=== PATIENT | male | born 1945 | race Caucasian/White ===

== ENCOUNTER 2016-05-29 08:38 | Day surgery (SDC) | payer MEDICARE, OTHER ==
[~2016-05-29 08:38] MED LIST: CELEBREX200 MG PO; LEVAQUIN750 M1 PO; MUCINEX600 M1 PO; NAPROXEN500 MG PO; NICOTINE PATCH1 EAC2 TP; NO HOME MEDICATION XX; OXYCODONE/APAP PO; PREDNISONE10 M1 PO; VENTOLIN HFA18 G2 PO
[2016-05-29 09:22] LABS: HCT-HEMATOCRIT 44.4 % (36.0-53.5); HGB-HEMOGLOBIN 15.8 gm/dl (13.5-17.0); MCH (MEAN CORPUSCULAR HGB) 33.5 pg (28.0-32.0); MCHC MEAN CORPUSCULAR HGB CONC 35.6 % (32.0-36.0); MCV (MEAN CELL VOLUME) 94.3 fl (82.0-96.0); NEUTROPHIL-AUTOMATED 10.2 tho/cmm (1.6-8.0); PLATELET COUNT 335 tho/cmm (150-450); RED BLOOD COUNT 4.71 mil/cmm (4.40-5.70); RED CELL DISTRIBUTION WIDTH 13.1 % (12.4-16.4); WHITE BLOOD COUNT 12.1 tho/cmm (4.0-10.0)
[2016-05-29 09:24] LABS: BASO % 0.3 % (0-2); EOS % 0.2 % (0-7); IMMATURE GRANULOCYTES ABSOLUTE 0.63 tho/cmm (0-0.03); IMMATURE GRANULOCYTES PERCENT 5.2 % (0-0.3); LYMPH ABSOLUTE COUNT 0.7 tho/cmm (0.8-4.5); MONO % 4.4 % (0-12); MONOCYTE ABSOLUTE COUNT 0.5 tho/cmm (0.0-1.2); NEUTROPHIL ABSOLUTE COUNT 10.2 tho/cmm (1.6-8.0); NEUTROPHILS % 83.9 % (40-80)
[2016-05-29 09:43] LABS: PROTHROMBIN TIME 11.3 SECONDS (9.0-13.6)
== END 2016-05-29 11:30 ==
LOC: CTSCAN 08:38 → SHSB 08:39
PROVIDERS: Radiology Diagnostic Radiology
PROC: BB24ZZZ Computerized Tomography (CT Scan) of Bilateral Lungs (ICD-10-PCS; principal; 2016-05-29)
DX: R91.8 Other nonspecific abnormal finding of lung field (principal); Z23 Encounter for immunization; Z79.2 Long term (current) use of antibiotics; Z79.899 Other long term (current) drug therapy; Z98.890 Other specified postprocedural states; R06.02 Shortness of breath
CPT/HCPCS: G0009; J7030